=== PATIENT | male | born 1970 | race African-American/Black ===

== ENCOUNTER 2024-11-11 11:09 | Emergency (ER) | payer SELFPAY ==
[2024-11-11] MEDS: Ibuprofen 800 MG Tab PO ONE (13:45)
[2024-11-11] MEDS: Pantoprazole 40 MG Tab.CR PO STA (13:46)
[2024-11-11] MEDS: Acetaminophen 500 MG Tab PO ONE (13:46)
== END 2024-11-11 14:17 | disposition home or self-care (01) ==
LOC: MW.ED 11:09
DX: B34.9 Viral infection, unspecified (principal); K21.9 Gastro-esophageal reflux disease without esophagitis; Z75.8 Other problems related to medical facilities and other health care
CPT/HCPCS: 87428; 99283; A9270